=== PATIENT | male | born 1970 | race Caucasian/White ===

== ENCOUNTER 2023-10-29 21:11 | Emergency (ER) | payer OTHER ==
[~2023-10-29] VITALS: Ht 177.8 cm; Wt 81.6 kg
[~2023-10-29 21:11] MED LIST: ACIPHEX20 MG PO; FINASTERIDE5 MG PO; TESTOSTERO200 MG/1 M
[2023-10-29 21:23] VITALS: TEMP 98.7
[2023-10-29] MEDS ORDERED: LIDOCAINE HCL 1% LOCAL INJ 20 ML VIAL ONE (21:44)
[2023-10-29] MEDS ORDERED: LIDOCAINE HCL 1% 2 ML AMP INJ ONE (21:45)
[2023-10-29 22:12] VITALS: PULSE 80; RESP 18; O2SAT 97
[2023-10-29] MEDS: TETANUS/DIPHTHERIA TOX ADULT 0.5 ML SYR IM ONE (22:32)
== END 2023-10-29 22:22 | disposition home or self-care (01) ==
LOC: FSED 21:17
DX: S61.012A Laceration without foreign body of left thumb without damage to nail, initial encounter (principal); S66.222A Laceration of extensor muscle, fascia and tendon of left thumb at wrist and hand level, initial encounter; W25.XXXA Contact with sharp glass, initial encounter; Y99.0 Civilian activity done for income or pay
CPT/HCPCS: 12001; 73130; 90471; 90714; 99283; J2001